=== PATIENT | male | born 1990 ===

== ENCOUNTER 2023-03-12 10:05 | Emergency (ER) | payer SELFPAY ==
[2023-03-12 12:17] LABS: BASO % 0.2 % (0.0-1.0); EOS # 0.1 10*3/uL (0.0-0.4); EOS % 1.6 % (1.0-4.0); HEMATOCRIT 44.6 % (42.0-52.0); LYMPH % 46.2 % (27.0-41.0); MEAN CELL VOLUME 86.9 fl (80.0-94.0); MEAN CORPUSCULAR HGB 28.7 pg (27.0-31.0); MEAN PLATELET VOLUME 9.2 fl (9.6-12.3); MONO # 0.5 10*3/uL (0.1-1.0); MONO % 10.6 % (3.0-9.0); NEUT # 1.8 10*3/uL (2.3-7.9); NEUT % 41.2 % (47.0-73.0); PLATELET COUNT AUTOMATED 228 10*3/uL (130-400); RED BLOOD COUNT 5.13 10*6/uL (4.50-5.90); RED CELL DISTRI WIDTH 11.9 % (0-14.5); WHITE BLOOD COUNT 4.4 10*3/uL (4.8-10.8)
[2023-03-12 12:40] LABS: ALKALINE PHOSPHATASE 85 U/L (46-116); BUN 9 mg/dl (9-23); CHLORIDE 106 mmol/L (98-107); POTASSIUM 4.1 mmol/L (3.4-5.1); SGPT/ALT 57 U/L (5-49); TOTAL PROTEIN 7.4 gm/dL (6.0-8.0)
== END 2023-03-12 14:03 | disposition home or self-care (01) ==
LOC: ED 10:05
PROVIDERS: Emergency Medicine
DX: B34.9 Viral infection, unspecified (principal); Z20.822 Contact with and (suspected) exposure to COVID-19